=== PATIENT | female | born 1965 | race Caucasian/White ===

== ENCOUNTER → 2016-07-18 | Outpatient (CLI) | payer OTHER ==
[~2016-07-18] VITALS: Ht 175.3 cm; Wt 79.4 kg
[~2016-07-18] MED LIST: SIMV10TA3 PO
--- NOTE | 2016-07-18 15:58 | RAD ---
EXAM: Ultrasound guided biopsy of a left breast abnormality 07/18/2016 INDICATION: Abnormality seen in the left breast on recent ultrasound. Biopsy was recommended for further evaluation. FINDINGS: Reference is made to the patient's mammogram/ultrasound from [facility] dated 07/07/2016. Informed consent was obtained. The procedure and risks including, but not limited to, infection and bleeding were discussed with the patient who had an opportunity to ask questions and subsequently signed the consent form. Procedure: After sterile preparation of the skin and using 1% lidocaine for local anesthesia, the hypoechoic area at the 4:00 position of the left breast was biopsied using a 14-gauge Bard biopsy instrument under sonographic guidance. A total of 4 tissue specimens were obtained, placed in formalin, and sent to pathology for further evaluation. No immediate complications were encountered. A clip was placed to sera the biopsy site. Interpretation: Images obtained during the procedure show the Bard device to be appropriately positioned within the mass. A post-biopsy digital mammogram with CAD obtained in the mammography suite demonstrates the clip in place. Impression: Technically successful ultrasound guided biopsy of a hypoechoic area within the left breast as outlined above. DICTATED and SIGNED BY: MARGARETTE SHEN MD DATE: 07/18/16 1227 MTDD
== END | disposition home or self-care (01) ==
LOC: US 10:05 → EDUNIT# 07-20 08:30
PROVIDERS: ATTEND Nurse Practitioner
DX: R92.8 Other abnormal and inconclusive findings on diagnostic imaging of breast (principal)
CPT/HCPCS: 76942; C1713; G0206; 77065

== ENCOUNTER → 2019-09-24 | Outpatient (CLI) | payer OTHER ==
[~2019-09-24] MED LIST changes: +LIDOCAINE 2%/EPI 1:100,000 20 ML VIAL. INJ ONE; +SIMV10TA15 PO; -SIMV10TA3 PO
--- NOTE | 2019-09-24 14:59 | RAD ---
EXAM: 1. STEREOTACTICALLY GUIDED VACUUM ASSISTED RIGHT BREAST CORE BIOPSY. 2. POSTCLIP DIGITAL RIGHT MAMMOGRAPHY. 3. SPECIMEN RADIOGRAPH. HISTORY: Right breast microcalcifications. Stereotactic biopsy is requested. FINDINGS: The procedure and its risks and benefits were discussed with the patient. Risks discussed included, but were not limited to, pain, infection, bleeding and need for repeat biopsy. The patient provided verbal and written consent. A timeout procedure was performed. The target cluster of calcifications laterally were localized stereotactically. The overlying skin was sterilely prepped and infiltrated with 1% lidocaine for local anesthesia. The deeper soft tissues were infiltrated with lidocaine with epinephrine for anesthesia and hemostasis. A 12 gauge vacuum-assisted core biopsy system was advanced to the target under stereotactic guidance. 6 core biopsy specimens were obtained. A specimen radiograph demonstrates the target calcifications within the specimen. A postbiopsy clip was placed and postoperative images were obtained. Instrumentation was withdrawn and pressure held and hemostasis. A sterile dressing was placed. There were no immediate complications. Postclip digital right mammography was obtained in CC and MLO projections and interpreted on a dedicated workstation. The postbiopsy clip corresponds with the target calcifications, which have been mostly removed. There are mild postprocedural changes. IMPRESSION: 1. Successful stereotactically guided vacuum assisted core biopsy of right breast microcalcifications with clip placement. 2. The target calcifications are included on the specimen radiograph. 3. Postclip mammography demonstrates the postbiopsy clip in correspondence with the target lesion. Electronically signed by: Amna Jason MD (09/24/2019 2:55 PM) [id number]
--- NOTE | 2019-09-25 15:07 | PATHOLOGY ---
[facility] Accession Number: [id number] . 01 Material submitted: . breast - RIGHT BREAST TISSUE. Modifiers: right . 01 Clinical history: . CALCIFICATIONS RIGHT BREAST . 02 Diagnosis: Breast tissue, right breast needle biopsies: - Focal stromal fibrosis, duct ectasia, cystic change and chronic inflammation. - Few stromal microcalcifications identified. (JPM:[facility] 09/25/2019) [facility] 09/25/2019 1414 Local . 02 Comment: Sections of the right breast needle biopsy predominantly reveal fatty breast tissue. There are small foci of stromal fibrosis, duct ectasia, cystic change, and chronic inflammation. There are a few stromal microcalcifications. There is no atypia or evidence of malignancy. (JPM:[facility] 09/25/2019) . 02 Electronically signed: . Christian Pollack MD, Pathologist NPI- [id number] . 01 Gross description: . The specimen is received in formalin, labeled "Samantha Ulbright, right breast tissue". Received within a plastic cassette are multiple needle cores of fibrofatty tissue measuring 2.8 x 0.7 x 0.3 cm in aggregate dimensions. The specimen is submitted entirely in cassettes A1 through A3. The cold ischemic time is 5 minutes. The cold ischemic time is 12 hours and 33 minutes. ([facility]; 09/24/2019) QAC/QAC 09/24/2019 1649 Local . 02 Pathologist provided ICD-10: N60.31, N60.41, N60.11, N61.0 . 02 CPT . 490792 Specimen Comment: A courtesy copy of this report has been sent to [phone], [phone] Specimen Comment: [phone] Specimen Comment: Report sent to / DR SOL Performed at: 01 [facility] [address], [place], [place] [id number] MD Jake Bloom MD Phone: [phone] Performed at: 02 [facility] [address], [place] [id number] MD Christian Pollack MD Phone: [phone]
== END | disposition home or self-care (01) ==
LOC: MAMMO 07:54
PROVIDERS: ATTEND Nurse Practitioner Family
DX: R92.8 Other abnormal and inconclusive findings on diagnostic imaging of breast (principal); N60.41 Mammary duct ectasia of right breast; N60.31 Fibrosclerosis of right breast
CPT/HCPCS: 19081; 77065; 88305; C1713; 19085; 77022